=== PATIENT | male | born 1930 | race Hispanic/Latino ===

== ENCOUNTER 2017-09-03 17:51 | Emergency (ER) | payer MEDICARE ==
[~2017-09-03] VITALS: Ht 170.2 cm; Wt 113.4 kg
[2017-09-03 18:33] LABS: BASOPHILS # (AUTO) 0.1 (0.0-0.1); BASOPHILS % 1.2 % (0.0-1.0); EOSINOPHILS # (AUTO) 0.3 (0.0-0.4); EOSINOPHILS % 4.8 % (0.0-6.0); HEMATOCRIT 42.6 % (38.2-49.6); HEMOGLOBIN 15.2 g/dL (14.0-18.0); LYMPHOCYTES # (AUTO) 1.6 (1.0-3.2); LYMPHOCYTES % 23.5 % (18.0-39.1); MEAN CORPUSCULAR HEMOGLOBIN 31.7 pg (28-32); MEAN CORPUSCULAR HGB CONC 35.7 g/dL (31-35); MEAN CORPUSCULAR VOLUME 88.8 fL (81-99); MONOCYTES # (AUTO) 0.9 (0.2-0.8); MONOCYTES % 13.2 % (4.4-11.3); NEUTROPHILS # (AUTO) 3.8 (2.1-6.9); NEUTROPHILS % 56.7 % (38.7-80.0); PLATELET COUNT 64 x10e3/uL (140-360); RED CELL DISTRIBUTION WIDTH 13.2 % (11.7-14.4)
[2017-09-03 18:39] LABS: INR 1.28
[2017-09-03 18:50] LABS: ALANINE AMINOTRANSFERASE 46 IU/L (0-55); ALBUMIN 3.3 g/dL (3.5-5.0); ALBUMIN/GLOBULIN RATIO 0.7 (0.8-2.0); ALKALINE PHOSPHATASE 139 IU/L (40-150); ANION GAP 12.3 mmol/L (8-16); BLOOD UREA NITROGEN 13 mg/dL (7-26); BUN/CREATININE RATIO 15 (6-25); CALCIUM 8.4 mg/dL (8.4-10.2); CARBON DIOXIDE 25 mmol/L (22-29); CHLORIDE 102 mmol/L (98-107); CREATINE KINASE 81 IU/L (30-200); CREATININE, SERUM 0.86 mg/dL (0.72-1.25); EST GLOMERULAR FILTRATION RATE > 60 ML/MIN (60-); GLUCOSE 81 mg/dL (74-118); MAGNESIUM 1.7 MG/DL (1.3-2.1); POTASSIUM 3.3 mmol/L (3.5-5.1); SODIUM 136 mmol/L (136-145)
--- NOTE | 2017-09-03 19:03 | Diagnostic Imaging Report ---
EXAMINATION: CHEST SINGLE (PORTABLE) INDICATION: \S\ERMD ORDER \S\Y COMPARISON: None FINDINGS: AP view TUBES and LINES: None. LUNGS: Lungs are well inflated. Bibasilar airspace opacities. No pulmonary edema. PLEURA: No pleural effusion or pneumothorax. HEART AND MEDIASTINUM: Prominent cardiac silhouette. Degenerative changes of the aortic arch. BONES AND SOFT TISSUES: No acute osseous lesion. Soft tissues are unremarkable. UPPER ABDOMEN: No free air under the diaphragm. IMPRESSION: Bibasilar atelectasis or aspiration. Signed by: Dr. Denia Li M.D. on 09/03/2017 7:00 PM
--- NOTE | 2017-09-03 19:47 | Diagnostic Imaging Report ---
EXAMINATION: Head CT without contrast. HISTORY:Syncope. COMPARISON:None. TECHNIQUE: Multidetector axial images were obtained from the foramen magnum to the vertex without contrast. The images were reconstructed using brain and bone algorithms. Thin section brain images were reformatted into coronal and sagittal planes. Intravenous contrast: None IMAGE QUALITY: Suboptimal evaluation particularly of the skull base and posterior fossa structures due to streak artifacts. FINDINGS: Skull/scalp: Nonspecific lytic lesion in the anterior aspect of the squamosal portion of left temporal bone, approximately measures 1.4 cm. Parenchyma: Nonspecific bilateral frontoparietal confluent periventricular and patchy subcortical white matter and subinsular hypodensity are likely related to small vessel ischemic changes. Patchy hypodensity in the anterior aspect of left lentiform nucleus possibly related to small vessel ischemic changes. No acute hemorrhage, mass or acute major vascular territorial infarct. Arteries: No density suggestive of thrombosis. Dural sinuses: No abnormal density suggestive of thrombosis. Ventricles: No hydrocephalus or displacement. Extra-axial spaces: No abnormal density. Brain volume: Mild generalized cerebral volume loss. Craniocervical junction: No mass, Chiari malformation, or basilar invagination. Sella: No mass. Paranasal/mastoid sinuses: Imaged portions unremarkable. IMPRESSION: 1. No acute intracranial hemorrhage. 2. Moderate supratentorial white matter microvascular ischemic changes. 3. Patchy hypodensity in the anterior aspect of left lentiform nucleus possibly represents small vessel ischemic changes, possibility of superimposed acute vascular insult is not excluded. 4. Mild generalized cerebral volume loss. 5. Nonspecific 1.4 cm lytic lesion in the squamosal portion of left temporal bone, differential possibility includes metastasis in appropriate clinical setting. If there is clinical concern can be followed up with a bone scan. Signed by: Dr. Thu Louis M.D. on 09/03/2017 7:43 PM
--- NOTE | 2017-09-03 19:55 | Diagnostic Imaging Report ---
History: Syncope. Comparison studies: None Technique: Axial images were obtained through the cervical region.. Coronal and sagittal images reconstructed from the axial data.. Intravenous contrast: None Findings: Fractures: None. Soft tissue injuries: None. Atlantoaxial articulation: Intact. Alignment: Normal lordosis. No scoliosis. Cervicomedullary junction: No abnormalities. The foramen magnum is patent. Soft tissues: No abnormalities. Vertebrae: Diffuse osseous demineralization. Heterogeneous bone marrow density with subcentimeter lytic lesion particularly in anterior arch of C1, C2 and C4 vertebral bodies. Degenerative changes: C2-C3: Moderate to severe bilateral facet arthrosis without significant foraminal stenosis. C3-C4: Posterior disc osteophyte complex without canal stenosis. Severe left foraminal stenosis due to facet and uncovertebral arthrosis. C4-C5: Posterior disc osteophyte complex without canal stenosis. Mild right and moderate left foraminal stenosis due to facet and uncovertebral arthrosis. C5-C6: Mild bilateral foraminal stenosis due to facet and uncovertebral arthrosis. C6-C7: Bilateral mild foraminal stenosis due to facet and uncovertebral arthrosis.. IMPRESSION: 1. No acute cervical spine fracture or dislocation. 2. Ligament, spinal cord and or vascular abnormalities cannot be excluded on the basis of this examination. 3. Cervical spondylosis as detailed above. 4. Heterogeneous bone marrow density with subcentimeter lytic lesion particularly in C1, C2 and C4, the differential possibility includes osseous demineralization or metastasis in appropriate clinical setting. Signed by: Dr. Thu Louis M.D. on 09/03/2017 7:52 PM
[2017-09-03 20:51] VITALS: BP 165/92
== END 2017-09-03 20:30 | disposition home or self-care (01) ==
LOC: ER 17:51
DX: R55 Syncope and collapse (principal); E11.649 Type 2 diabetes mellitus with hypoglycemia without coma; E87.6 Hypokalemia
CPT/HCPCS: 36415; 70450; 71045; 72125; 80053; 82550; 82553; 82948; 83735; 83880; 84484; 85025; 85610; 85730; 93005; 99284